=== PATIENT | female | born 1975 | race Caucasian/White ===

== ENCOUNTER 2023-08-25 15:13 | Inpatient (IN) | payer OTHER ==
[2023-08-25] MEDS ORDERED: LOPERAMIDE HCL 2 MG CAPSULE PO PRN (17:34)
[2023-08-25] MEDS ORDERED: ONDANSETRON *ODT* 4 MG TABLET SL PRN (17:34)
[2023-08-25] MEDS ORDERED: MAG HYDROX/AL HYDROX/SIMETH 30 ML UNIT-DOSE CUP PO PRN (17:34)
[2023-08-25] MEDS ORDERED: guaiFENesin 600 MG TABLET.ER (FP) PO PRN (17:34)
[2023-08-25] MEDS ORDERED: IBUPROFEN 400 MG TABLET (FP) PO PRN (17:34)
[2023-08-25] MEDS ORDERED: DICYCLOMINE HCL 10 MG CAPSULE PO PRN (17:34)
[2023-08-25] MEDS ORDERED: BISMUTH SUBSALICYLATE 524 MG/30 ML PO PRN (17:34)
[2023-08-25] MEDS ORDERED: NALOXONE HCL (KLOXXADO) 8 MG SPRAY NS PRN (17:34)
[2023-08-25] MEDS ORDERED: IBUPROFEN 600 MG TABLET (FP) PO PRN (17:34)
[2023-08-25] MEDS ORDERED: NALOXONE HCL 0.4 MG/ML VIAL IM PRN (17:34)
[2023-08-25] MEDS ORDERED: BENZONATATE 200 MG CAPSULE PO PRN (17:34)
[2023-08-25] MEDS ORDERED: POLYETHYLENE GLYCOL (HEALTHYLAX) 3350 17 GM PACKET PO PRN (17:34)
[2023-08-25] MEDS ORDERED: BENZOCAINE/MENTHOL (CHLORASEPTIC ) LOZENGE MM PRN (17:34)
[2023-08-25] MEDS ORDERED: ACETAMINOPHEN 325 MG TABLET (FP) PO PRN (17:34)
[2023-08-25] MEDS: METHOCARBAMOL 500 MG TABLET PO PRN (19:09)
[2023-08-25] MEDS: chlordiazePOXIDE HCL 25 MG CAPSULE PO PRN (19:09)
[2023-08-25] MEDS: THIAMINE HCL 100 MG TABLET (FP) PO SCH (22:20)
[2023-08-25] MEDS: chlordiazePOXIDE HCL 25 MG CAPSULE PO SCH (22:20)
[2023-08-25] MEDS: MELATONIN 5 MG TABLETS PO SCH (22:20)
[2023-08-25] MEDS: GABAPENTIN 300 MG CAPSULE PO SCH (22:22)
[2023-08-25] MEDS: hydrOXYzine PAMOATE 25 MG CAPSULE (FP) PO PRN (22:23)
[2023-08-26] MEDS: PRENATAL VITAMINS W/ FOLIC ACID TABLET (FP) PO SCH (10:18)
[2023-08-26] MEDS: PANTOPRAZOLE 20 MG TABLET PO SCH (10:19)
[2023-08-26] MEDS: SERTRALINE HCL 50 MG TABLET (FP) PO SCH (10:19)
[2023-08-26] MEDS: FENOFIBRIC ACID 45 MG CAP PO SCH (10:45)
[2023-08-26 11:35] LABS: CHLORIDE 110 mmol/L (98-107); POTASSIUM 4.7 mmol/L (3.5-5.1); SODIUM 143 mmol/L (136-145)
[2023-08-26 11:37] LABS: CALCIUM 9.2 mg/dL (8.5-10.1); GLUCOSE,RANDOM 107 mg/dL (74-106); HEMATOCRIT 32.9 % (32.4-45.2); HEMOGLOBIN 11.3 GM/dL (10.7-15.3); MCH 31.2 pg (25.7-33.7); MCHC 34.3 g/dl (32.0-36.0); MEAN CELL VOLUME 91.1 fl (80-96); MEAN PLT VOLUME 10.2 fl (7.5-11.1); PLATELET COUNT 267 10^3/uL (134-434); RBC 3.61 M/mm3 (3.60-5.2); RDW 14.2 % (11.6-15.6); WHITE BLOOD COUNT 6.7 K/mm3 (4.0-10.0)
[2023-08-26 11:38] LABS: ALBUMIN 3.5 g/dl (3.4-5.0); ANION GAP 4 mmol/L (4-13); BLOOD UREA NITROGEN 11.1 mg/dL (7-18); CO2 28 mmol/L (21-32)
[2023-08-26 11:41] LABS: SGOT/AST 9 U/L (15-37); SGPT/ALT 20 U/L (13-61)
[2023-08-26 11:42] LABS: BILIRUBIN,TOTAL 0.3 mg/dL (0.2-1); TOT PROT 6.5 g/dl (6.4-8.2)
[2023-08-26 11:44] LABS: ALK PHOS 50 U/L (45-117)
[2023-08-26] MEDS: DIVALPROEX SODIUM 500 MG TABLET E.C. PO SCH (22:14)
[2023-08-26] MEDS: SUVOREXANT 10 MG TABLET PO PRN (22:18)
[2023-08-26] MEDS: ALBUTEROL SO4 HFA INHALER IH PRN (22:24)
[2023-08-27] MEDS: chlordiazePOXIDE HCL 25 MG CAPSULE PO SCH (05:40)
[2023-08-27] MEDS: PANTOPRAZOLE 20 MG TABLET PO SCH (06:38)
[2023-08-27] MEDS: BACITRACIN 0.9 GM PACKET TP SCH (10:38)
[2023-08-27] MEDS: MINERAL OIL/PETROLAT/WATER TOPICAL CREAM 113 GM JAR TP SCH (11:00)
[2023-08-28] MEDS ORDERED: chlordiazePOXIDE HCL 10 MG CAPSULE PO PRN
[2023-08-28] MEDS: chlordiazePOXIDE HCL 10 MG CAPSULE PO SCH (05:45)
[2023-08-29] MEDS: chlordiazePOXIDE HCL 10 MG CAPSULE PO SCH (05:30)
[2023-08-29] MEDS: MAGNESIUM HYDROX 2400MG/30ML ORAL SUSPENSION 30 ML CUP PO PRN (22:50)
[2023-08-30] MEDS: chlordiazePOXIDE HCL 10 MG CAPSULE PO ONE (05:35)
[2023-08-30 07:30] VITALS: RESP 18
[2023-08-30 10:04] VITALS: BP 97/61; PULSE 74; TEMP 97.1
== END 2023-08-30 10:43 | disposition home or self-care (01) | DRG 775 ==
LOC: YASAS 15:13 → Y6N 18:23
PROVIDERS: ADMIT Allergy & Immunology; ATTEND Surgery
PROC: HZ2ZZZZ Detoxification Services for Substance Abuse Treatment (ICD-10-PCS; principal; 2023-08-25)
DX: F10.230 Alcohol dependence with withdrawal, uncomplicated (principal); F12.20 Cannabis dependence, uncomplicated; F31.9 Bipolar disorder, unspecified; F10.280 Alcohol dependence with alcohol-induced anxiety disorder; F10.282 Alcohol dependence with alcohol-induced sleep disorder; F43.10 Post-traumatic stress disorder, unspecified; E78.1 Pure hyperglyceridemia; J45.909 Unspecified asthma, uncomplicated; K21.9 Gastro-esophageal reflux disease without esophagitis; M17.11 Unilateral primary osteoarthritis, right knee; M19.011 Primary osteoarthritis, right shoulder; Z88.0 Allergy status to penicillin
CPT/HCPCS: 36415; 80053; 80164; 80307; 81025; 85027; 86780; 87635; 93005; 93010

== ENCOUNTER 2023-12-09 13:19 | Inpatient (IN) | payer OTHER ==
[2023-12-09 16:04] VITALS: BMI 31.9
[2023-12-09] MEDS ORDERED: ALBUTEROL SO4 HFA INHALER IH PRN (18:09)
[2023-12-09] MEDS ORDERED: LOPERAMIDE HCL 2 MG CAPSULE PO PRN (18:10)
[2023-12-09] MEDS ORDERED: guaiFENesin 600 MG TABLET.ER (FP) PO PRN (18:10)
[2023-12-09] MEDS ORDERED: ACETAMINOPHEN 325 MG TABLET (FP) PO PRN (18:10)
[2023-12-09] MEDS ORDERED: DICYCLOMINE HCL 10 MG CAPSULE PO PRN (18:10)
[2023-12-09] MEDS ORDERED: ONDANSETRON *ODT* 4 MG TABLET SL PRN (18:10)
[2023-12-09] MEDS ORDERED: BENZONATATE 200 MG CAPSULE PO PRN (18:10)
[2023-12-09] MEDS ORDERED: BENZOCAINE/MENTHOL (CHLORASEPTIC ) LOZENGE MM PRN (18:10)
[2023-12-09] MEDS ORDERED: BISMUTH SUBSALICYLATE 524 MG/30 ML PO PRN (18:10)
[2023-12-09] MEDS ORDERED: POLYETHYLENE GLYCOL (HEALTHYLAX) 3350 17 GM PACKET PO PRN (18:10)
[2023-12-09] MEDS ORDERED: MAGNESIUM HYDROX 2400MG/30ML ORAL SUSPENSION 30 ML CUP PO PRN (18:10)
[2023-12-09] MEDS ORDERED: MAG HYDROX/AL HYDROX/SIMETH 30 ML UNIT-DOSE CUP PO PRN (18:10)
[2023-12-09] MEDS: diazePAM 5 MG TABLET PO PRN (21:16)
[2023-12-09] MEDS: MELATONIN 5 MG TABLETS PO SCH (22:21)
[2023-12-09] MEDS: THIAMINE 100 MG TABLET PO SCH (22:22)
[2023-12-09] MEDS: METHOCARBAMOL 500 MG TABLET PO PRN (22:23)
[2023-12-09] MEDS: diazePAM 5 MG TABLET PO SCH (22:24)
[2023-12-10] MEDS: PANTOPRAZOLE 20 MG TABLET PO SCH (10:08)
[2023-12-10] MEDS: FENOFIBRIC ACID 45 MG CAP PO SCH (10:08)
[2023-12-10] MEDS: PRENATAL VITAMINS W/ FOLIC ACID TABLET (FP) PO SCH (10:08)
[2023-12-10 10:26] LABS: CHLORIDE 107 mmol/L (98-107); POTASSIUM 4.2 mmol/L (3.5-5.1); SODIUM 140 mmol/L (136-145)
[2023-12-10 10:30] LABS: BLOOD UREA NITROGEN 11.4 mg/dL (7-18)
[2023-12-10 10:31] LABS: ALBUMIN 3.4 g/dl (3.4-5.0); ANION GAP 4 mmol/L (4-13); CO2 28 mmol/L (21-32); GLUCOSE,RANDOM 91 mg/dL (74-106)
[2023-12-10 10:33] LABS: CREATININE 0.8 mg/dL (0.55-1.3); SGOT/AST 11 U/L (15-37); SGPT/ALT 21 U/L (13-61)
[2023-12-10 10:35] LABS: ALK PHOS 56 U/L (45-117); BILIRUBIN,TOTAL 0.5 mg/dL (0.2-1); TOT PROT 6.4 g/dl (6.4-8.2)
[2023-12-10 10:37] LABS: HEMOGLOBIN 11.9 GM/dL (10.7-15.3); MCH 30.4 pg (25.7-33.7); MEAN CELL VOLUME 89.3 fl (80-96); MEAN PLT VOLUME 10.4 fl (7.5-11.1); PLATELET COUNT 215 10^3/uL (134-434); RBC 3.92 M/mm3 (3.60-5.2); RDW 13.8 % (11.6-15.6); WHITE BLOOD COUNT 7.5 K/mm3 (4.0-10.0)
[2023-12-10 12:45] LABS: HIV INTERPRETATION NEGATIVE (NEGATIVE)
[2023-12-10] MEDS: SERTRALINE HCL 50 MG TABLET (FP) PO SCH (14:42)
[2023-12-10] MEDS: IBUPROFEN 600 MG TABLET (FP) PO PRN (17:08)
[2023-12-10] MEDS ORDERED: SUVOREXANT 10 MG TABLET PO PRN (22:00)
[2023-12-10] MEDS: DIVALPROEX SODIUM 500 MG TABLET E.C. PO SCH (22:12)
[2023-12-10] MEDS: GABAPENTIN 100 MG CAPSULE PO SCH (22:12)
[2023-12-11] MEDS: IBUPROFEN 400 MG TABLET (FP) PO PRN (04:29)
[2023-12-11 05:35] VITALS: BP 161/83; PULSE 74; RESP 18; TEMP 97.5
[2023-12-11] MEDS: diazePAM 5 MG TABLET PO SCH (05:35)
[2023-12-12] MEDS ORDERED: diazePAM 5 MG TABLET PO ONE (06:00)
== END 2023-12-11 11:04 | disposition home or self-care (01) | DRG 775 ==
LOC: YASAS 13:19 → Y6N 18:27
PROVIDERS: ADMIT Allergy & Immunology; ATTEND Surgery
PROC: HZ2ZZZZ Detoxification Services for Substance Abuse Treatment (ICD-10-PCS; principal; 2023-12-09)
DX: F10.230 Alcohol dependence with withdrawal, uncomplicated (principal); F12.20 Cannabis dependence, uncomplicated; F10.280 Alcohol dependence with alcohol-induced anxiety disorder; F10.282 Alcohol dependence with alcohol-induced sleep disorder; F31.9 Bipolar disorder, unspecified; E78.1 Pure hyperglyceridemia; J45.20 Mild intermittent asthma, uncomplicated; K21.9 Gastro-esophageal reflux disease without esophagitis; M19.012 Primary osteoarthritis, left shoulder; M17.11 Unilateral primary osteoarthritis, right knee; Z88.0 Allergy status to penicillin
CPT/HCPCS: 36415; 80053; 80305; 80307; 81025; 85027; 86780; 87389

== ENCOUNTER 2024-03-17 17:19 | Inpatient (IN) | payer OTHER ==
[2024-03-17 19:14] VITALS: BMI 30.9
[2024-03-17] MEDS ORDERED: guaiFENesin 600 MG TABLET.ER (FP) PO PRN (19:48)
[2024-03-17] MEDS ORDERED: ACETAMINOPHEN 325 MG TABLET (FP) PO PRN (19:48)
[2024-03-17] MEDS ORDERED: IBUPROFEN 400 MG TABLET (FP) PO PRN (19:48)
[2024-03-17] MEDS ORDERED: BENZONATATE 200 MG CAPSULE PO PRN (19:48)
[2024-03-17] MEDS ORDERED: DICYCLOMINE HCL 10 MG CAPSULE PO PRN (19:48)
[2024-03-17] MEDS ORDERED: LOPERAMIDE HCL 2 MG CAPSULE PO PRN (19:48)
[2024-03-17] MEDS ORDERED: MAGNESIUM HYDROX 2400MG/30ML ORAL SUSPENSION 30 ML CUP PO PRN (19:48)
[2024-03-17] MEDS ORDERED: BENZOCAINE/MENTHOL (CHLORASEPTIC ) LOZENGE MM PRN (19:48)
[2024-03-17] MEDS ORDERED: IBUPROFEN 600 MG TABLET (FP) PO PRN (19:48)
[2024-03-17] MEDS ORDERED: POLYETHYLENE GLYCOL (HEALTHYLAX) 3350 17 GM PACKET PO PRN (19:48)
[2024-03-17] MEDS ORDERED: NICOTINE POLACRILEX 2 MG GUM BUC PRN (19:48)
[2024-03-17] MEDS ORDERED: ONDANSETRON *ODT* 4 MG TABLET SL PRN (19:48)
[2024-03-17] MEDS ORDERED: MAG HYDROX/AL HYDROX/SIMETH 30 ML UNIT-DOSE CUP PO PRN (19:48)
[2024-03-17] MEDS ORDERED: BISMUTH SUBSALICYLATE 524 MG/30 ML PO PRN (19:48)
[2024-03-17] MEDS ORDERED: NICOTINE POLACRILEX 2 MG LOZENGE BC PRN (19:48)
[2024-03-17] MEDS: cloNIDine HCL 0.1 MG TABLET PO ONE (20:26)
[2024-03-17] MEDS ORDERED: diazePAM 5 MG TABLET ONE (22:49)
[2024-03-17] MEDS ORDERED: MELATONIN 5 MG TABLETS ONE (22:49)
[2024-03-17] MEDS: MELATONIN 5 MG TABLETS PO SCH (22:53)
[2024-03-17] MEDS: THIAMINE 100 MG TABLET PO SCH (22:53)
[2024-03-17] MEDS: diazePAM 5 MG TABLET PO SCH (22:53)
[2024-03-17] MEDS: P-EPHED 60MG/TRIPROLIDI 2.5MG TABLET PO PRN (23:13)
[2024-03-17] MEDS: hydrOXYzine PAMOATE 25 MG CAPSULE (FP) PO PRN (23:13)
[2024-03-17] MEDS: METHOCARBAMOL 500 MG TABLET PO PRN (23:13)
[2024-03-17] MEDS: ALBUTEROL SO4 HFA INHALER IH PRN (23:14)
[2024-03-17] MEDS: FENOFIBRIC ACID 45 MG CAP PO SCH (23:26)
[2024-03-17] MEDS: FLUTICASONE PROP 0.05% 16 GM NASAL SPRAY NS PRN (23:59)
[2024-03-18] MEDS: diazePAM 5 MG TABLET PO SCH (05:59)
[2024-03-18] MEDS: FAMOTIDINE 20 MG TABLET PO SCH (06:51)
[2024-03-18] MEDS: PRENATAL VITAMINS W/ FOLIC ACID TABLET (FP) PO SCH (10:05)
[2024-03-18] MEDS: ARIPiprazole 5 MG TABLET PO SCH (14:43)
[2024-03-18] MEDS: SERTRALINE HCL 50 MG TABLET (FP) PO SCH (14:45)
[2024-03-18 15:06] LABS: HEMATOCRIT 37.4 % (32.4-45.2); HEMOGLOBIN 12.4 GM/dL (10.7-15.3); MCH 29.3 pg (25.7-33.7); MCHC 33.3 g/dl (32.0-36.0); MEAN CELL VOLUME 88.2 fl (80-96); MEAN PLT VOLUME 11.2 fl (7.5-11.1); PLATELET COUNT 231 10^3/uL (134-434); RBC 4.24 M/mm3 (3.60-5.2); RDW 14.2 % (11.6-15.6); WHITE BLOOD COUNT 6.1 K/mm3 (4.0-10.0)
[2024-03-18 15:09] LABS: CHLORIDE 107 mmol/L (98-107); POTASSIUM 4.3 mmol/L (3.5-5.1); SODIUM 139 mmol/L (136-145)
[2024-03-18 15:20] LABS: ALBUMIN 3.5 g/dl (3.4-5.0)
[2024-03-18 15:21] LABS: BILIRUBIN,TOTAL 0.4 mg/dL (0.2-1); SGOT/AST 12 U/L (15-37)
[2024-03-18 15:22] LABS: ALK PHOS 69 U/L (45-117); CREATININE 0.8 mg/dL (0.55-1.3); TOT PROT 6.6 g/dl (6.4-8.2)
[2024-03-18 15:23] LABS: SGPT/ALT 14 U/L (13-61)
[2024-03-18 15:24] LABS: CALCIUM 9.2 mg/dL (8.5-10.1)
[2024-03-18 15:25] LABS: ANION GAP 7 mmol/L (4-13); CO2 25 mmol/L (21-32); GLUCOSE,RANDOM 133 mg/dL (74-106)
[2024-03-18] MEDS: hydrOXYzine PAMOATE 50 MG CAPSULE (FP) PO SCH (21:43)
[2024-03-18] MEDS: SUVOREXANT 5 MG TABLET PO PRN (22:07)
[2024-03-19] MEDS: diazePAM 5 MG TABLET PO SCH (06:05)
[2024-03-19] MEDS: diazePAM 5 MG TABLET PO PRN (22:19)
[2024-03-20] MEDS: diazePAM 5 MG TABLET PO ONE (07:12)
[2024-03-20 09:29] VITALS: BP 121/74; PULSE 66; RESP 16; TEMP 98
== END 2024-03-20 12:09 | disposition home or self-care (01) | DRG 775 ==
LOC: YASAS 17:19 → Y6N 22:37
PROVIDERS: ADMIT Allergy & Immunology; ATTEND Surgery
PROC: HZ2ZZZZ Detoxification Services for Substance Abuse Treatment (ICD-10-PCS; principal; 2024-03-17)
DX: F10.230 Alcohol dependence with withdrawal, uncomplicated (principal); F13.20 Sedative, hypnotic or anxiolytic dependence, uncomplicated; F12.20 Cannabis dependence, uncomplicated; F31.9 Bipolar disorder, unspecified; F10.280 Alcohol dependence with alcohol-induced anxiety disorder; F10.282 Alcohol dependence with alcohol-induced sleep disorder; F10.24 Alcohol dependence with alcohol-induced mood disorder; F43.10 Post-traumatic stress disorder, unspecified; E78.5 Hyperlipidemia, unspecified; J45.20 Mild intermittent asthma, uncomplicated; K21.9 Gastro-esophageal reflux disease without esophagitis; M17.11 Unilateral primary osteoarthritis, right knee; M19.012 Primary osteoarthritis, left shoulder
CPT/HCPCS: 36415; 80053; 80305; 80307; 81025; 82962; 85027